=== PATIENT | male | born 1970 ===

== ENCOUNTER 2019-01-19 18:25 | Emergency (ER) | payer SELFPAY ==
[2019-01-19 18:53] VITALS: BP 150/90; PULSE 90; TEMP 98.4; O2SAT 99
--- NOTE | 2019-01-19 20:37 | C.PDOC ---
History Of Present Illness 48-year-old male presents to the ED for evaluation of sore throat for one week. Patient took 600mg Advil without relief. He denies fever, chills, cough. Time Seen by Provider: 01/19/19 19:28 Chief Complaint (Nursing): ENT Problem History Per: Patient History/Exam Limitations: None Onset/Duration Of Symptoms: Days (one week ) Current Symptoms Are (Timing): Still Present Past Medical History Reviewed: Historical Data, Nursing Documentation, Vital Signs Vital Signs: Last Vital Signs Temp 98.4 F 01/19/19 18:42 Pulse 90 01/19/19 18:42 Resp 18 01/19/19 18:42 BP 150/90 01/19/19 18:42 Pulse Ox 99 01/19/19 18:42 Primary Care Provider: FAMILY PROVIDER,NO - Medical History PMH: No Chronic Diseases Surgical History: No Surg Hx Family History: States: Unknown Family Hx - Social History Hx Alcohol Use: No Hx Substance Use: No Review Of Systems Constitutional: Negative for: Fever, Chills, Weakness ENT: Positive for: Throat Pain. Negative for: Nose Discharge, Nose Congestion Cardiovascular: Negative for: Chest Pain Respiratory: Negative for: Cough, Shortness of Breath Gastrointestinal: Negative for: Nausea, Vomiting, Diarrhea Skin: Negative for: Rash Neurological: Negative for: Weakness, Numbness, Dizziness Physical Exam - Physical Exam Appears: Non-toxic, No Acute Distress Skin: Normal Color, Warm, No Rash Head: Atraumatic, Normacephalic Eye(s): bilateral: Normal Inspection (no scleral injection ), PERRL, EOMI Ear(s): Bilateral: Normal (no drainage ) Nose: Normal, No Discharge Oral Mucosa: Moist Throat: No Exudate, Other (mild injection, no swelling. airway patent ) Neck: Supple Chest: Symmetrical Cardiovascular: Rhythm Regular Respiratory: No Accessory Muscle Use, Other (normal inspiratory effort ) Neurological/Psych: Oriented x3, Normal Cranial Nerves (grossly intact ) ED Course And Treatment O2 Sat by Pulse Oximetry: 99 (on RA ) Pulse Ox Interpretation: Normal Medical Decision Making Medical Decision Making: Progress: Throat culture obtained. Rapid Strep test ordered, resulted negative. Patient is stable for discharge with instructions for pharyngitis. Patient complains of pain, will give Rxs for Amoxicillin and Motrin. Advised to follow- up with PMD within 1-2 days for further evaluation. Disposition Counseled Patient/Family Regarding: Diagnosis, Need For Followup, Rx Given - Disposition Disposition: HOME/ ROUTINE Disposition Time: 20:36 Condition: STABLE Prescriptions: Amoxicillin 500 mg PO TID #15 tablet Ibuprofen [Motrin Tab] 800 mg PO TID PRN #21 tab PRN Reason: Pain, Moderate (4-7) Instructions: Sore Throat, Adult (DC) Forms: Gen Discharge Inst Brazilian, [employer] (Brazilian) Print Language: NEPALESE - Clinical Impression Clinical Impression: Pharyngitis - Scribe Statement The provider has reviewed the documentation as recorded by the Scribe (Queenie Perry) All medical record entries made by the Scribe were at my direction and personally dictated by me. I have reviewed the chart and agree that the record accurately reflects my personal performance of the history, physical exam, medical decision making, and the department course for this patient. I have also personally directed, reviewed, and agree with the discharge instructions and disposition.
[2019-01-19 20:56] VITALS: RESP 20
== END 2019-01-19 20:55 | disposition home or self-care (01) ==
LOC: C.ER 18:25
DX: J02.9 Acute pharyngitis, unspecified (principal)